=== PATIENT | female | born 1965 | race Asian ===

== ENCOUNTER 2016-07-30 00:34 | Emergency (ER) | payer BC ==
[~2016-07-30] VITALS: Ht 149.9 cm; Wt 52.0 kg
[2016-07-30 02:21] LABS: HEMATOCRIT 35.8 % (36.0-46.0); MCH 29.8 PG (29.0-34.0); MCHC 33.5 G/DL (30.0-36.0); MCV 88.8 FL (83-99); MEAN PLAT.VOLUME 10.7 uM^3 (9.5-12.4); PLATELET COUNT 203 K/uL (156-360); RBC DIS.WIDTH-CV 12.1 % (11.8-14.6); RBC DIS.WIDTH-SD 38.6 % (39-53); RED BLOOD COUNT 4.03 M/uL (3.80-5.20); WHITE BLOOD COUNT 11.8 K/uL (4.1-10.2)
[2016-07-30 02:29] LABS: CHLORIDE 105 mEq/L (99-109); POTASSIUM 3.6 mEq/L (3.7-5.4); SODIUM 137 mEq/L (136-147)
[2016-07-30 02:31] LABS: GLUCOSE 184 mg/dL (70-99)
[2016-07-30 02:33] LABS: ANION GAP 14 MEQ/L (2-14)
[2016-07-30 02:35] LABS: GFR ESTIMATE (CALCULATED) > 59 mL/min/
[2016-07-30 02:36] LABS: UREA NITROGEN (BUN) 15 mg/dL (9-23)
[2016-07-30 03:13] VITALS: BP 147/74
== END 2016-07-30 03:13 | disposition home or self-care (01) ==
LOC: EME 00:34 → EDBD 00:34 → EME 01:59
PROVIDERS: Physician Assistant Medical
DX: R51 Headache (principal); R11.0 Nausea; M54.2 Cervicalgia; Z91.81 History of falling; E11.9 Type 2 diabetes mellitus without complications
CPT/HCPCS: 70450; 71020; 80048; 84439; 84443; 85027; 93005; 99281; 99285; J1200; J1885; J2765; J7030